=== PATIENT | male | born 1975 | race American Indian/Alaskan Native ===

== ENCOUNTER 2016-08-06 22:39 | Emergency (ER) | payer SELFPAY ==
[2016-08-07] MEDS ORDERED: TYLENOL ONE
[2016-08-07] MEDS ORDERED: TYLENOL PO ONE (00:01)
[2016-08-07 00:02] VITALS: BP 147/76
== END 2016-08-07 07:30 | disposition left against medical advice (07) ==
LOC: ED 22:39
DX: M54.9 Dorsalgia, unspecified (principal); Z53.21 Procedure and treatment not carried out due to patient leaving prior to being seen by health care provider

== ENCOUNTER 2018-10-17 18:36 | Emergency (ER) | payer SELFPAY ==
[2018-10-17 18:55] VITALS: BP 126/87
--- NOTE | 2018-10-17 18:58 | Emergency Department Report ---
Blank Doc - Documentation Documentation: reports stomach pain started 2 days ago pointing to epigatric area. Pain 9/10 and reports nausea. Positive Marijuana, last etoh use over 1 month . no back pain. no urinary symptoms. Denies cp or sob. Last BM normal. Had BM this morning. Tried to eat grapes but he threw up. Took peptobismol and ibuprofen. ABDomen. Minimal tenderness epigastric area. Abd distended but patient reports that this is his norm. Nl BS A: abdominal pain P:UA cbc, cmp, lipase
[2018-10-17] MEDS ORDERED: PEPCID PO ONE (19:55)
[2018-10-17] MEDS ORDERED: LIDOCAINE VISCOUS 2% PO ONE (19:55)
[2018-10-17] MEDS ORDERED: ALUM-MAG HYDROX-SIMETH 200-200-20MG/5ML PO ONE (19:55)
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
[2018-10-17 20:18] LABS: Alanine Aminotransferase 19 units/L (7-56); Albumin 4.4 g/dL (3.9-5); BUN/Creatinine Ratio 9; Blood Urea Nitrogen 8 mg/dL (9-20); Calcium 9.9 mg/dL (8.4-10.2); Hemolysis Index 26; Lipase 41 units/L (13-60)
[2018-10-17 20:43] LABS: Monocytes # (Auto) 0.5 K/mm3 (0.0-0.8); Monocytes % (Auto) 4.5 % (0.0-7.3)
[2018-10-17] MEDS ORDERED: PROTONIX PO ONE (20:52)
[2018-10-17 21:04] LABS: Hematocrit 41.1 % (35.5-45.6); Hemoglobin 13.3 gm/dl (11.8-15.2); Lymphocytes # (Auto) 1.1 K/mm3 (1.2-5.4); Lymphocytes % (Auto) 10.4 % (13.4-35.0); Mean Corpuscular HGB Conc 32 % (32-34); Mean Corpuscular Volume 74 fl (84-94); Platelet Count 296 K/mm3 (140-440); Red Cell Distribution Width 15.5 % (13.2-15.2)
[2018-10-17 21:10] LABS: Mean Corpuscular Hemoglobin 24 pg (28-32)
== END 2018-10-17 21:44 | disposition home or self-care (01) ==
LOC: ED 18:36
DX: R10.13 Epigastric pain (principal); F12.10 Cannabis abuse, uncomplicated
CPT/HCPCS: 36415; 80053; 83690; 85025

== ENCOUNTER 2018-10-20 11:03 | Emergency (ER) | payer SELFPAY ==
[2018-10-20] MEDS ORDERED: TYLENOL PO ONE (11:35)
--- NOTE | 2018-10-20 11:35 | Emergency Department Report ---
Blank Doc - Documentation Documentation: 43 y o male presents with mid abd pain x 1 week denies n/v/d/f chronic abd pain tylenol given in triage ACC evaluate
[2018-10-20] MEDS ORDERED: TYLENOL ONE (11:36)
--- NOTE | 2018-10-20 13:58 | Cat Scan Report ---
CT ABDOMEN PELVIS WITHOUT CONTRAST: HISTORY: Pain. COMPARISON: none. TECHNIQUE: Helical CT in 1.25mm intervals without IV contrast. Sagittal and coronal reconstructions. FINDINGS: Lung bases: Normal. Liver: Normal. Biliary system: Normal. Pancreas: Normal. Spleen: Normal. Kidneys/ureters/bladder: Normal. Adrenal glands: Normal. Aorta: Normal. Intestines: Normal. Appendix: Within normal limits. I believe I see a small appendicolith on image 255, series 3, but no evidence for acute inflammatory changes. Ascites: None. Adenopathy: None. Musculoskeletal: Intact. Mild thoracolumbar spondylosis. IMPRESSION: Unremarkable CT scan of the abdomen and pelvis without contrast. No acute inflammatory process is identified.
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
[2018-10-20 15:31] VITALS: BP 131/63
== END 2018-10-20 15:31 | disposition home or self-care (01) ==
LOC: ED 11:03
DX: K27.9 Peptic ulcer, site unspecified, unspecified as acute or chronic, without hemorrhage or perforation (principal); F12.10 Cannabis abuse, uncomplicated
CPT/HCPCS: 74176

== ENCOUNTER 2019-04-26 09:25 | Emergency (ER) | payer SELFPAY ==
[2019-04-26 09:34] VITALS: BP 113/73
[2019-04-26] MEDS ORDERED: ONDANSETRON 4 MG ODT TAB PO ONE (10:25)
[2019-04-26] MEDS ORDERED: FAMOTIDINE 20 MG TAB PO ONE (10:25)
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
== END 2019-04-26 10:50 | disposition home or self-care (01) ==
LOC: ED 09:25
DX: K27.9 Peptic ulcer, site unspecified, unspecified as acute or chronic, without hemorrhage or perforation (principal); F12.10 Cannabis abuse, uncomplicated; Z79.899 Other long term (current) drug therapy
CPT/HCPCS: Q0162

== ENCOUNTER 2019-04-29 13:06 | Emergency (ER) | payer SELFPAY ==
[2019-04-29 13:19] VITALS: BP 118/79
--- NOTE | 2019-04-29 13:22 | Event Note ---
ED Screening Note Date of service: 04/29/19 Time: 13:21 ED Screening Note: 43 y/o male comes in for chronic epigastric pain. Patient reports that Protonic helps better than Omeprazole and carafate. This initial assessment/diagnostic orders/clinical plan/treatment(s) is/are subject to change based on patients health status, clinical progression and re- assessment by fellow clinical providers in the ED. Further treatment and workup at subsequent clinical providers discretion. Patient/guardian urged not to elope from the ED as their condition may be serious if not clinically assessed and managed. Initial orders include:
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
[2019-04-29] MEDS ORDERED: PANTOPRAZOLE 40 MG TAB PO ONE (13:54)
== END 2019-04-29 15:00 | disposition home or self-care (01) ==
LOC: ED 13:06
DX: K27.9 Peptic ulcer, site unspecified, unspecified as acute or chronic, without hemorrhage or perforation (principal); F12.10 Cannabis abuse, uncomplicated; Z79.899 Other long term (current) drug therapy